=== PATIENT | male | born 1970 | race Caucasian/White ===

== ENCOUNTER 2018-08-12 12:52 | Inpatient (IN) | payer OTHER ==
[2018-08-12 13:19] VITALS: BMI 27.9
--- NOTE | 2018-08-12 15:03 | HP ---
CIWA Score Nausea/Vomitin-Mild Nausea/No Vomiting Muscle Tremors: 1-None Visible, but [place] Anxiety: 3 Agitation: 1-Slight > Activity Paroxysmal Sweats: 3 Orientation: 0-Oriented Tacttile Disturbances: 0-None Auditory Disturbances: 2-Mild Harshness/Frighten Visual Disturbances: 2-Mild Sensitivity Headache: 0-None Present CIWA-Ar Total Score: 13 - Admission Criteria OASAS Guidelines: Admission for Medically Managed Detox: Requires at least one of the followin. CIWA greater than 12 2. Seizures within the past 24 hours 3. Delirium tremens within the past 24 hours 4. Hallucinations within the past 24 hours 5. Acute intervention needed for co occurring medical disorder 6. Acute intervention needed for co occurring psychiatric disorder 7. Severe withdrawal that cannot be handled at a lower level of care (continued vomiting, continued diarrhea, abnormal vital signs) requiring intravenous medication and/or fluids 8. Patient presents the following: CIWA greater than 12 Admission Criteria Met: Admission criteria met Admission [facility] Allergies/Adverse Reactions: Allergies Allergy/AdvReac Type Severity Reaction Status Date / Time Fish Containing Products Allergy Verified 08/12/18 15:04 History of Present Illness: patient reports drinking 1/2 pint /day x 6 mo and several beers/ day , was previously 4 years , starts drinking in the mornings " my breakfast is a bottle " , denies seizures, blackouts , falls while intoxicated,denies driving . First age of use 14 , heavily since age 28 , longest sobriety 4 years . utox + janice, opi, mtd MEME 0.048 cocaine since July 2018 . latest 2 d ago , occasional use heroin use : 2 bundles / day x 10 years , latest 2 days ago IVDU in the past , on MMTP x 10 yrs currently @ [facility] 2 , latest this morning 120 mg x 3 mo , highest 180 mg 4 years ago , voluntarily tapering . tobacco : 1 ppd since age 13 , " i am trying to quit " denies other illicits PMhx : hiv dx 1988 ( rf = IVDU ) , ID clinic - dr Thakur [phone] [facility] , reports on Truvada , Combivir & ?? unknown HTN claims on " water pill " & other anti- HTN , hep C ( dx 1992 :rf = IVDU , tx 6 mo ago completed does not recall name of meds or where he went " in [place] " ) PSHx : appy , left foot frx 1986 09/ fall from window while working , hardware in place Psych :denies SHx : lives in own room ( HASA ) , SSI 1 dtr age 29 A & W , 1 gk A & W - Ebola screening Have you traveled outside of the country in the last 21 days: No Have you had contact with anyone from an Ebola affected area: No Have you been sick,other than usual withdrawal symptoms: No Do you have a fever: No - Review of Systems Constitutional: See HPI EENT: reports: Other (myopia ,) Respiratory: reports: No Symptoms reported Cardiac: reports: No Symptoms Reported GI: reports: See HPI : reports: No Symptoms Reported Musculoskeletal: reports: No Symptoms Reported Integumentary: reports: Rash (r hand x sevral days) Neuro: reports: See HPI Endocrine: reports: No Symptoms Reported Hematology: reports: No Symptoms Reported Psychiatric: reports: Orientated x3 Patient History - Patient Medical History Hx Asthma: No Hx Chronic Obstructive Pulmonary Disease (COPD): No Hx Cardiac Disorders: No Hx Seizures: No Hx Diabetes: No Hx Gastrointestinal Disorders: No Hx Genitourinary Disorders: No Hx Sexually Transmitted Disorders: Yes (HIV) Hx Renal Disease (ESRD): No Hx Depression: No Hx Suicide Attempt: No Hx Schizophrenia: No - Patient Surgical History Past Surgical History: Yes Hx Neurologic Surgery: No Hx Cataract Extraction: No Hx Cardiac Surgery: No Hx Lung Surgery: No Hx Breast Surgery: No Hx Breast Biopsy: No Hx Abdominal Surgery: No Hx Appendectomy: Yes (AT AGE 13) Hx Cholecystectomy: No Hx Genitourinary Surgery: No Hx Section: No Hx Orthopedic Surgery: Yes (RIGHT ANKLE) Other Surgical History: RIGHT ANKLE BROKEN IN 1982 - PPD History Previous Implant?: Yes Documented Results: Negative w/o proof - Smoking Cessation Smoking history: Current every day smoker Have you smoked in the past 12 months: Yes Aproximately how many cigarettes per day: 20 Hx Chewing Tobacco Use: No Initiated information on smoking cessation: No - Substances Abused Alcohol Route: Oral Frequency: Daily Amount used: $25 Age of first use: 15 Date of Last Use: 08/12/18 Cocaine Route: Inhalation Frequency: 1-3 times last 30 days Amount used: $15 Age of first use: 13 Date of Last Use: 08/11/18 Family Disease History - Family Disease History Family Disease History: Diabetes: Mother (htn), Other: Father (d. HIV 52 ), Mother, Brother (d. OD heroin 41 , 1 brother A & W ) Admission Physical Exam [facility] - Vital Signs Vital Signs: Vital Signs - 24 hr 08/12/18 13:17 Temperature 98.9 F Pulse Rate 82 Respiratory 18 Rate Blood Pressure 104/69 - Physical General Appearance: Yes: Disheveled, Mild Distress, Alcohol on Breath, Intoxicated HEENTM: Yes: EOMI, Normocephalic, Normal Voice, Other (edentulous upper , poor dentition lower) Respiratory: Yes: Chest Non-Tender, Lungs Clear, Normal Breath Sounds Neck: Yes: No masses,lesions,Nodules, Trachea in good position Breast: Yes: Breast Exam Deferred Cardiology: Yes: Regular Rhythm, Regular Rate, S1, S2, Tachycardia Abdominal: Yes: Normal Bowel Sounds, Soft Genitourinary: Yes: Within Normal Limits Back: Yes: Normal Inspection Musculoskeletal: Yes: full range of Motion Extremities: Yes: Normal Capillary Refill, Other (OA deformities agnes hands right 3rd distal old injury w. residual scar / partial amputation) Neurological: Yes: Motor Strength 5/5 Integumentary: Yes: Rash - Diagnostic (1) Alcohol intoxication Current Visit: Yes Status: Acute Qualifiers: Complication of substance-induced condition: uncomplicated Qualified Code(s ): F10.920 - Alcohol use, unspecified with intoxication, uncomplicated (2) Cocaine dependence Current Visit: Yes Status: Chronic Qualifiers: Substance use status: uncomplicated Qualified Code(s): F14.20 - Cocaine dependence, uncomplicated (3) Opiate dependence Current Visit: Yes Status: Chronic Qualifiers: Substance use status: uncomplicated Qualified Code(s): F11.20 - Opioid dependence, uncomplicated (4) Nicotine dependence Current Visit: Yes Status: Chronic Qualifiers: Nicotine product type: cigarettes BHS Breath Alcohol Content Breath Alcohol Content: 0.048 Urine Drug Screen - Results Drug Screen Negative: No Urine Drug Screen Results: JANICE-Cocaine, OPI-Opiates, MTD-Methadone
[2018-08-12] MEDS ORDERED: MENTHOL/PHENOL 1 EACH UD MM PRN (15:15)
[2018-08-12] MEDS ORDERED: IBUPROFEN 400 MG TABLET (FP) PO PRN (15:15)
[2018-08-12] MEDS ORDERED: NICOTINE POLACRILEX 2 MG GUM BUC PRN (15:15)
[2018-08-12] MEDS ORDERED: P-EPHED 60MG/TRIPROLIDI 2.5MG TABLET PO PRN (15:15)
[2018-08-12] MEDS ORDERED: ACETAMINOPHEN 325 MG TABLET (FP) PO PRN (15:15)
[2018-08-12] MEDS ORDERED: guaiFENesin/D-METHORPHAN HB 10 ML UNIT-DOSE CUPS PO PRN (15:15)
[2018-08-12] MEDS ORDERED: MAGNESIUM HYDROX 2400MG/30ML ORAL SUSPENSION 30 ML CUP PO PRN (15:15)
[2018-08-12] MEDS ORDERED: MAGNESIUM CITRATE 300 ML BOTTLE PO PRN (15:15)
[2018-08-12] MEDS: diazePAM 5 MG TABLET PO PRN (18:19)
[2018-08-12] MEDS: VITAMINS A AND D TOPICAL OINTMENT 60 GM TUBE TP SCH (18:50)
[2018-08-12] MEDS ORDERED: MELATONIN 5 MG TABLETS PO PRN (22:00)
[2018-08-12] MEDS: THIAMINE HCL 100 MG TABLET (FP) PO SCH (22:26)
[2018-08-12] MEDS: diazePAM 5 MG TABLET PO SCH (22:26)
[2018-08-13] MEDS: VITAMINS A AND D TOPICAL OINTMENT 60 GM TUBE TP SCH ×5 (01:17→23:21)
[2018-08-13] MEDS: METHADONE HCL 40 MG DISPERSABLE TABLET PO SCH (06:04)
[2018-08-13] MEDS: diazePAM 5 MG TABLET PO SCH ×3 (06:05→21:27)
[2018-08-13] MEDS: PRENATAL VITAMINS W/ FOLIC ACID TABLET (FP) PO SCH (10:12)
[2018-08-13] MEDS: EMTRICITABINE 200MG/TENOFOVIR 300MG PO SCH (10:14)
[2018-08-13] MEDS: diazePAM 5 MG TABLET PO PRN (10:14)
[2018-08-13 10:20] LABS: HEMATOCRIT 40.9 % (35.4-49); HEMOGLOBIN 13.4 GM/dL (11.7-16.9); MCH 30.9 pg (25.7-33.7); MCHC 32.7 g/dl (32.0-35.9); MEAN CELL VOLUME 94.5 fl (80-96); MEAN PLT VOLUME 11.1 fl (7.5-11.1); PLATELET COUNT 140 K/MM3 (134-434); RBC 4.33 M/mm3 (4.00-5.60); RDW 13.5 % (11.9-15.9); WHITE BLOOD COUNT 4.6 K/mm3 (4.0-10.0)
[2018-08-13 10:32] LABS: ALBUMIN 3.7 g/dl (3.4-5.0); ALK PHOS 122 U/L (45-117); ANION GAP 9 MMOL/L (8-16); BILIRUBIN,TOTAL 0.5 mg/dL (0.2-1); BLOOD UREA NITROGEN 23 mg/dL (7-18); CALCIUM 8.9 mg/dL (8.5-10.1); CHLORIDE 109 mmol/L (98-107); CO2 24 mmol/L (21-32); CREATININE 1.9 mg/dL (0.55-1.3); GLUCOSE,RANDOM 85 mg/dL (74-106); POTASSIUM 4.9 mmol/L (3.5-5.1); SGOT/AST 17 U/L (15-37); SGPT/ALT 20 U/L (13-61); SODIUM 142 mmol/L (136-145); TOT PROT 7.5 g/dl (6.4-8.2)
--- NOTE | 2018-08-13 14:39 | PN ---
S CIWA - CIWA Score Nausea/Vomitin-Mild Nausea/No Vomiting Muscle Tremors: 3 Anxiety: 1-Mildly Anxious Agitation: 2 Paroxysmal Sweats: 1-Minimal Palms Moist Orientation: 1-Uncertain about Date Tacttile Disturbances: 1-Very Mild Itch/Numbness Auditory Disturbances: 0-None Visual Disturbances: 0-None Headache: 2-Mild CIWA-Ar Total Score: 12 BHS Progress Note (SOAP) Subjective: tremor sweat restlessness trouble sleep at night anxiety Objective: 08/13/18 14:38 Vital Signs Temperature 97.6 F 08/13/18 13:11 Pulse Rate 60 08/13/18 13:11 Respiratory Rate 18 08/13/18 13:11 Blood Pressure 98/59 L 08/13/18 13:11 O2 Sat by Pulse Oximetry (%) Laboratory Last Values WBC 4.6 K/mm3 (4.0-10.0) 08/13/18 05:45 RBC 4.33 M/mm3 (4.00-5.60) 08/13/18 05:45 Hgb 13.4 GM/dL (11.7-16.9) 08/13/18 05:45 Hct 40.9 % (35.4-49) 08/13/18 05:45 MCV 94.5 fl (80-96) 08/13/18 05:45 MCH 30.9 pg (25.7-33.7) 08/13/18 05:45 MCHC 32.7 g/dl (32.0-35.9) 08/13/18 05:45 RDW 13.5 % (11.9-15.9) 08/13/18 05:45 Plt Count 140 K/MM3 (134-434) 08/13/18 05:45 MPV 11.1 fl (7.5-11.1) 08/13/18 05:45 Sodium 142 mmol/L (136-145) 08/13/18 05:45 Potassium 4.9 mmol/L (3.5-5.1) 08/13/18 05:45 Chloride 109 mmol/L (98-107) H 08/13/18 05:45 Carbon Dioxide 24 mmol/L (21-32) 08/13/18 05:45 Anion Gap 9 MMOL/L (8-16) 08/13/18 05:45 BUN 23 mg/dL (7-18) H 08/13/18 05:45 Creatinine 1.9 mg/dL (0.55-1.3) H 08/13/18 05:45 Creat Clearance w eGFR 37.71 (>60) 08/13/18 05:45 Random Glucose 85 mg/dL (74-106) 08/13/18 05:45 Calcium 8.9 mg/dL (8.5-10.1) 08/13/18 05:45 Total Bilirubin 0.5 mg/dL (0.2-1) 08/13/18 05:45 AST 17 U/L (15-37) 08/13/18 05:45 ALT 20 U/L (13-61) 08/13/18 05:45 Alkaline Phosphatase 122 U/L (45-117) H 08/13/18 05:45 Total Protein 7.5 g/dl (6.4-8.2) 08/13/18 05:45 Albumin 3.7 g/dl (3.4-5.0) 08/13/18 05:45 RPR Titer Nonreactive (NONREACTIVE) 08/13/18 05:45 lab noted Assessment: 08/13/18 14:39 withdrawal sx Plan: continue detox
[2018-08-13] MEDS: THIAMINE HCL 100 MG TABLET (FP) PO SCH (21:27)
[2018-08-14] MEDS: METHADONE HCL 40 MG DISPERSABLE TABLET PO SCH (05:48)
[2018-08-14] MEDS: VITAMINS A AND D TOPICAL OINTMENT 60 GM TUBE TP SCH ×3 (05:49→17:39)
[2018-08-14] MEDS: PRENATAL VITAMINS W/ FOLIC ACID TABLET (FP) PO SCH (09:18)
[2018-08-14] MEDS: EMTRICITABINE 200MG/TENOFOVIR 300MG PO SCH (09:18)
[2018-08-14] MEDS: diazePAM 5 MG TABLET PO SCH ×2 (09:18→22:10)
[2018-08-14] MEDS: MAG HYDROX/AL HYDROX/SIMETH 30 ML UNIT-DOSE CUP PO PRN ×2 (09:19→20:25)
--- NOTE | 2018-08-14 11:30 | PN ---
[facility] CIWA - CIWA Score Nausea/Vomitin-No Nausea/No Vomiting Muscle Tremors: 3 Anxiety: 1-Mildly Anxious Agitation: 1-Slight > Activity Paroxysmal Sweats: 1-Minimal Palms Moist Orientation: 1-Uncertain about Date Tacttile Disturbances: 0-None Auditory Disturbances: 0-None Visual Disturbances: 0-None Headache: 1-Very Mild CIWA-Ar Total Score: 8 S Progress Note (SOAP) Subjective: mild tremor and sweating otherwise feeling ok Objective: 08/14/18 11:31 Vital Signs Temperature 97.5 F L 08/14/18 09:52 Pulse Rate 75 08/14/18 09:52 Respiratory Rate 18 08/14/18 09:52 Blood Pressure 132/91 08/14/18 09:52 O2 Sat by Pulse Oximetry (%) Laboratory Last Values WBC 4.6 K/mm3 (4.0-10.0) 08/13/18 05:45 RBC 4.33 M/mm3 (4.00-5.60) 08/13/18 05:45 Hgb 13.4 GM/dL (11.7-16.9) 08/13/18 05:45 Hct 40.9 % (35.4-49) 08/13/18 05:45 MCV 94.5 fl (80-96) 08/13/18 05:45 MCH 30.9 pg (25.7-33.7) 08/13/18 05:45 MCHC 32.7 g/dl (32.0-35.9) 08/13/18 05:45 RDW 13.5 % (11.9-15.9) 08/13/18 05:45 Plt Count 140 K/MM3 (134-434) 08/13/18 05:45 MPV 11.1 fl (7.5-11.1) 08/13/18 05:45 Sodium 142 mmol/L (136-145) 08/13/18 05:45 Potassium 4.9 mmol/L (3.5-5.1) 08/13/18 05:45 Chloride 109 mmol/L (98-107) H 08/13/18 05:45 Carbon Dioxide 24 mmol/L (21-32) 08/13/18 05:45 Anion Gap 9 MMOL/L (8-16) 08/13/18 05:45 BUN 23 mg/dL (7-18) H 08/13/18 05:45 Creatinine 1.9 mg/dL (0.55-1.3) H 08/13/18 05:45 Creat Clearance w eGFR 37.71 (>60) 08/13/18 05:45 Random Glucose 85 mg/dL (74-106) 08/13/18 05:45 Calcium 8.9 mg/dL (8.5-10.1) 08/13/18 05:45 Total Bilirubin 0.5 mg/dL (0.2-1) 08/13/18 05:45 AST 17 U/L (15-37) 08/13/18 05:45 ALT 20 U/L (13-61) 08/13/18 05:45 Alkaline Phosphatase 122 U/L (45-117) H 08/13/18 05:45 Total Protein 7.5 g/dl (6.4-8.2) 08/13/18 05:45 Albumin 3.7 g/dl (3.4-5.0) 08/13/18 05:45 RPR Titer Nonreactive (NONREACTIVE) 08/13/18 05:45 lab noted Assessment: 08/14/18 11:31 withdrawal sx Plan: continue detox
[2018-08-14] MEDS: RANITIDINE HCL 150 MG TABLET (FP) PO SCH ×2 (13:09→22:10)
[2018-08-14] MEDS: diazePAM 5 MG TABLET PO PRN (15:17)
[2018-08-14] MEDS: THIAMINE HCL 100 MG TABLET (FP) PO SCH (22:10)
[2018-08-15] MEDS: VITAMINS A AND D TOPICAL OINTMENT 60 GM TUBE TP SCH ×3 (01:14→11:44)
[2018-08-15] MEDS: METHADONE HCL 40 MG DISPERSABLE TABLET PO SCH (05:16)
[2018-08-15 09:11] VITALS: BP 126/77; PULSE 85; TEMP 99.1
[2018-08-15] MEDS: PRENATAL VITAMINS W/ FOLIC ACID TABLET (FP) PO SCH (10:11)
[2018-08-15] MEDS: RANITIDINE HCL 150 MG TABLET (FP) PO SCH (10:12)
[2018-08-15] MEDS: diazePAM 5 MG TABLET PO SCH (10:12)
[2018-08-15] MEDS: EMTRICITABINE 200MG/TENOFOVIR 300MG PO SCH (10:13)
--- NOTE | 2018-08-15 14:07 | DS ---
[facility] Detox Discharge Summary Admission Date: 08/12/18 Discharge Date: 08/15/18 - History Present History: Alcohol Dependence, Cocaine Dependence, Opioid Dependence, MMTP Additional Comments: PATIENT SCHEDULED FOR DISCHARGE FROM DETOX UNIT TO DAY. PATIENT GOING TO [facility] ([facility]) FOR AFTERCARE. PATIENT WAS DISCHARGED FROM DETOX UNIT TO BE TAKEN OVER TO REHAB UNIT IN STABLE MEDICAL CONDITION. Pertinent Past History: M.M.T.P., H.I.V., History of Broken Right Ankle. - Physical Exam Results Vital Signs: Vital Signs Temperature 99.1 F 08/15/18 09:10 Pulse Rate 85 08/15/18 09:10 Respiratory Rate 16 08/15/18 09:10 Blood Pressure 126/77 08/15/18 09:10 O2 Sat by Pulse Oximetry (%) Pertinent Admission Physical Exam Findings: WITHDRAWAL SYMPTOMS. Laboratory Tests 08/13/18 08/13/18 08/13/18 05:45 05:45 05:45 WBC 4.6 RBC 4.33 Hgb 13.4 Hct 40.9 MCV 94.5 MCH 30.9 MCHC 32.7 RDW 13.5 Plt Count 140 MPV 11.1 Sodium 142 Potassium 4.9 Chloride 109 H Carbon Dioxide 24 Anion Gap 9 BUN 23 H Creatinine 1.9 H Creat Clearance w eGFR 37.71 Random Glucose 85 Calcium 8.9 Total Bilirubin 0.5 AST 17 ALT 20 Alkaline Phosphatase 122 H Total Protein 7.5 Albumin 3.7 RPR Titer Nonreactive LABS NOTED. - Treatment Hospital Course: Detox Protocol Followed, Detoxed Safely, Responded well, Discharged Condition Good, Rehab Referral Accepted Patient has Accepted a Rehab Referral to: [facility] ([place], [place]). - Medication Discharge Medications: Ambulatory Orders Emtricitabine/Tenofovir [Truvada] 1 tab PO DAILY 08/12/18 - Diagnosis (1) Alcohol intoxication Status: Acute Qualifiers: Complication of substance-induced condition: uncomplicated Qualified Code(s ): F10.920 - Alcohol use, unspecified with intoxication, uncomplicated (2) Cocaine dependence Status: Chronic Qualifiers: Substance use status: uncomplicated Qualified Code(s): F14.20 - Cocaine dependence, uncomplicated (3) Nicotine dependence Status: Chronic Qualifiers: Nicotine product type: cigarettes Substance use status: uncomplicated Qualified Code(s): F17.210 - Nicotine dependence, cigarettes, uncomplicated (4) Opiate dependence Status: Chronic Qualifiers: Substance use status: uncomplicated Qualified Code(s): F11.20 - Opioid dependence, uncomplicated - AMA Did Patient Leave Against Medical Advice: No
[2018-08-16] MEDS ORDERED: diazePAM 5 MG TABLET PO SCH (10:00)
== END 2018-08-15 12:47 | disposition other institution (70) | DRG 773 ==
LOC: YASAS 12:52 → Y3N 15:30
PROC: HZ2ZZZZ Detoxification Services for Substance Abuse Treatment (ICD-10-PCS; principal; 2018-08-12)
DX: F10.230 Alcohol dependence with withdrawal, uncomplicated (principal); F10.220 Alcohol dependence with intoxication, uncomplicated; F11.20 Opioid dependence, uncomplicated; F17.210 Nicotine dependence, cigarettes, uncomplicated; R00.0 Tachycardia, unspecified
CPT/HCPCS: 36415; 80053; 85027; 86593

== ENCOUNTER 2018-08-15 13:00 | Inpatient (IN) | payer OTHER ==
[2018-08-15] MEDS ORDERED: P-EPHED 60MG/TRIPROLIDI 2.5MG TABLET PO PRN (14:10)
[2018-08-15] MEDS ORDERED: MAGNESIUM HYDROX 2400MG/30ML ORAL SUSPENSION 30 ML CUP PO PRN (14:10)
[2018-08-15] MEDS ORDERED: MAG HYDROX/AL HYDROX/SIMETH 30 ML UNIT-DOSE CUP PO PRN (14:10)
[2018-08-15] MEDS ORDERED: guaiFENesin/D-METHORPHAN HB 10 ML UNIT-DOSE CUPS PO PRN (14:10)
[2018-08-15] MEDS ORDERED: IBUPROFEN 400 MG TABLET (FP) PO PRN (14:10)
[2018-08-15] MEDS ORDERED: LOPERAMIDE HCL 2 MG CAPSULE PO PRN (14:10)
[2018-08-15] MEDS ORDERED: MENTHOL/PHENOL 1 EACH UD MM PRN (14:10)
[2018-08-15] MEDS ORDERED: MAGNESIUM CITRATE 300 ML BOTTLE PO PRN (14:10)
[2018-08-15] MEDS ORDERED: ACETAMINOPHEN 325 MG TABLET (FP) PO PRN (14:10)
[2018-08-15] MEDS ORDERED: NICOTINE POLACRILEX 2 MG GUM BUC PRN (14:10)
--- NOTE | 2018-08-15 14:12 | HP ---
[facility] Rehab Assess/Revision - Admission History Admitted to Rehab from: [facility] Date of Admission to Rehab: 08/15/2018 - Vital signs Vital Signs: NOTED; STABLE. - Findings Detox History & Physical reviewed: Yes Concur with findings: Yes Comments/Additional Findings: PATIENT'S MEDICAL / MEDICATION HISTORY REVIEWED PRIOR TO DISCHARGE FROM DETOX UNIT. PATIENT WAS DISCHARGED FROM DETOX UNIT TO BE TAKEN TO REHAB UNIT IN STABLE MEDICAL CONDITION. Inpatient Rehab Admission - Initial Determination Are CD services needed?: Yes Free of communicable disease: Yes Not in need of hospitalization: Yes - Rehab Admission Criteria Poor recovery environment: Yes Comorbidities: Yes Patient is meeting Inpatient Rehab admission criteria:: Yes
--- NOTE | 2018-08-15 14:24 | PN ---
[facility] Progress Note Note: NOTE: DURING MEDICAL ASSESSMENT BEFORE LEAVING DETOX TO GO TO REHAB UNIT, PATIENT REPORTS HISTORY OF TAKING TRUVADA PRIOR TO DETOX ADMISSION. HOWEVER, PATIENT UNABLE TO GIVE CLEAR ANSWER TO WHETHER HE IS TAKING THIS MEDICATION FOR TREATMENT OF (POSITIVE HISTORY OF) H.I.V. OR IF HE IS TAKING IT FOR H.I.V. PROPHYLAXIS. PATIENT ALSO FIRST STATED THAT HE TAKES 'PREZISTA' ALONG WITH TRUVADA, THEN LATER DENIES THAT HE TAKES ANY OTHER MEDICATION ALONG WITH THE TRUVADA. PATIENT UNABLE TO RECALL NAME OF PHARMACY IN WHICH HE LAST PICKED UP THIS MEDICATION. PER PATIENT'S [facility] DETOX MEDICAL ASSESSMENT / ADMISSION REPORT, PATIENT TESTED POSITIVE FOR HIV IN 1988. THUS, TRUVADA WILL NOT BE ORDERED FOR PATIENT WHILE HE IS ADMITTED FOR REHAB ADMISSION. PATIENT MADE AWARE OF THIS AND ADVISED TO FOLLOW-UP WITH I.D. / H.I.V. MEDICAL PROVIDER (DR. BLAIR) AFTER DISCHARGE FOR REHAB FOR FURTHER EVALUATION. Dileep ESCOTO NP
[2018-08-15] MEDS: THIAMINE HCL 100 MG TABLET (FP) PO SCH (21:47)
[2018-08-15] MEDS: HYDROCORTISONE 1% TOPICAL CREAM 30 GM TUBE TP SCH (21:48)
[2018-08-15] MEDS ORDERED: MELATONIN 5 MG TABLETS PO PRN (22:00)
[2018-08-16] MEDS: METHADONE HCL 40 MG DISPERSABLE TABLET PO SCH (06:28)
--- NOTE | 2018-08-16 07:33 | HP ---
Psychiatrist Admission - Data Date of interview: 08/16/18 Admission source: [facility] Identifying data: Patient is a 48 year male, father of one, unemployed, homeless, and is supported by [facility]. This is patient's first admission to rehab at [facility]. Patient admitted to for alcohol and cocaine dependence. Medical History: HIV, appendectomy, right ankle surgery Psychiatric History: Patient denies h/o psychiatric hospitalization, outpatient care, and suicide attempt. Mr. Sanderson is currently on methadone maintenance of 120mg daily. Patient reports stable mood but is experiencing difficulty sleeping. Physical/Sexual Abuse/Trauma History: Denies. Vital Signs: Vital Signs - 24 hr 08/15/18 08/16/18 08/16/18 15:59 00:30 03:30 Temperature 98.9 F Pulse Rate 71 Respiratory 18 18 18 Rate Blood Pressure 118/76 08/16/18 07:19 Temperature 97.3 F L Pulse Rate 50 L Respiratory 18 Rate Blood Pressure 122/81 Allergies/Adverse Reactions: Allergies Allergy/AdvReac Type Severity Reaction Status Date / Time Fish Containing Products Allergy Hives Verified 08/15/18 13:33 Date of last physical exam: 08/12/18 Concur with the findings of this exam: Yes - Substance Abuse/Tx History Hx Alcohol Use: Yes (Beers and vodka daily) Hx Substance Use: Yes ($10- $20 weekly) Substance Use Type: Cocaine Hx Substance Use Treatment: Yes ([facility] in 2014) Mental Status Exam - Mental Status Exam Alert and Oriented to: Time, Place, Person Cognitive Function: Good Patient Appearance: Well Groomed Mood: Euthymic Affect: Appropriate Patient Behavior: Appropriate, Cooperative Speech Pattern: Clear, Appropriate Voice Loudness: Normal Thought Process: Intact, Goal Oriented Thought Disorder: Not Present Hallucinations: Denies Suicidal Ideation: Denies Homicidal Ideation: Denies Insight/Judgement: Poor Sleep: Poorly Appetite: Fair Muscle strength/Tone: Normal Gait/Station: Normal Psychiatric Findings - Problem List ([place] 1, 2,3) (1) Alcohol dependence Current Visit: Yes Status: Acute (2) Cocaine dependence Current Visit: Yes Status: Acute (3) Substance-induced sleep disorder Current Visit: Yes Status: Acute (4) Opiate dependence Current Visit: Yes Status: Chronic Qualifiers: Substance use status: uncomplicated Qualified Code(s): F11.20 - Opioid dependence, uncomplicated (5) Methadone maintenance therapy patient Current Visit: Yes Status: Chronic - Initial Treatment Plan Initial Treatment Plan: Psychoeducation provided. Detoxification in progress. Will order Trazodone 50mg HS for insomnia. Mr. Sanderson reports favorable effects from taking trazodone in previous detox/rehab settings. Benefits and side effects discussed. Patient made aware of the risk of priapism. Verbal consent given.
[2018-08-16] MEDS: PRENATAL VITAMINS W/ FOLIC ACID TABLET (FP) PO SCH (10:14)
[2018-08-16] MEDS: HYDROCORTISONE 1% TOPICAL CREAM 30 GM TUBE TP SCH ×2 (10:17→21:52)
[2018-08-16] MEDS: THIAMINE HCL 100 MG TABLET (FP) PO SCH (21:51)
[2018-08-16] MEDS: traZODone HCL 50 MG TABLET (FP) PO SCH (21:51)
[2018-08-17] MEDS: METHADONE HCL 40 MG DISPERSABLE TABLET PO SCH (06:20)
[2018-08-17] MEDS: PRENATAL VITAMINS W/ FOLIC ACID TABLET (FP) PO SCH (09:46)
[2018-08-17] MEDS: HYDROCORTISONE 1% TOPICAL CREAM 30 GM TUBE TP SCH ×2 (09:48→22:25)
[2018-08-17] MEDS: traZODone HCL 50 MG TABLET (FP) PO SCH (22:03)
[2018-08-17] MEDS: THIAMINE HCL 100 MG TABLET (FP) PO SCH (22:03)
[2018-08-18] MEDS: METHADONE HCL 40 MG DISPERSABLE TABLET PO SCH (06:30)
[2018-08-18 07:00] VITALS: BP 122/77; PULSE 81; TEMP 97.8
[2018-08-18] MEDS: HYDROCORTISONE 1% TOPICAL CREAM 30 GM TUBE TP SCH (11:04)
[2018-08-18] MEDS: PRENATAL VITAMINS W/ FOLIC ACID TABLET (FP) PO SCH (11:04)
== END 2018-08-18 11:30 | disposition left against medical advice (07) | DRG 770 ==
LOC: YASAS 13:00 → Y5N 13:02
PROVIDERS: ADMIT Psychiatry & Neurology Psychiatry; ATTEND Psychiatry & Neurology Psychiatry
PROC: HZ42ZZZ Group Counseling for Substance Abuse Treatment, Cognitive-Behavioral (ICD-10-PCS; principal; 2018-08-15)
DX: F10.20 Alcohol dependence, uncomplicated (principal); F11.20 Opioid dependence, uncomplicated; F14.20 Cocaine dependence, uncomplicated; F19.282 Other psychoactive substance dependence with psychoactive substance-induced sleep disorder; Z21 Asymptomatic human immunodeficiency virus [HIV] infection status